=== PATIENT | female | born 1960 | race Caucasian/White ===

== ENCOUNTER 2018-04-18 12:39 | Emergency (ER) | payer MEDICARE ==
[~2018-04-18] VITALS: Ht 165.1 cm; Wt 110.0 kg
[~2018-04-18 12:39] MED LIST: BUDE10.2 PO; CLON0.5T11 PO; ERGO500017 PO; ESTR1TAB15 PO; GEMF600T4 PO; LISI-167 PO; OMEP-110 PO; OXCA300T PO; OXCA600T PO; RISP1TAB3 PO; SERT100T5 PO; SITA1TAB5 PO; TRAZ-136 PO; ZOLP10TA PO
[2018-04-18] MEDS ORDERED: VENL150C PO (13:10)
[2018-04-18] MEDS ORDERED: ESCI20TA10 PO (13:10)
[2018-04-18] MEDS ORDERED: SIMV20TA3 PO (13:10)
[2018-04-18] MEDS ORDERED: METF500T5 PO (13:10)
[2018-04-18] MEDS ORDERED: LISI-170 PO (13:10)
[2018-04-18] MEDS ORDERED: BREX1TAB PO (13:15)
[2018-04-18] MEDS ORDERED: DIPHENHYDRAMINE 50 MG/ML, 1ML ONE (13:28)
[2018-04-18] MEDS ORDERED: DIPHENHYDRAMINE 50 MG/ML, 1ML IVPush ONE (13:30)
[2018-04-18] MEDS ORDERED: SODIUM CHLORIDE FLUSH 10ML SYR IVF ONE (13:30)
[2018-04-18 13:42] LABS: BASOPHILS # (AUTO) 0.09 x10^3/uL (0-0.1); BASOPHILS % (AUTO) 1 % (0-1); EOSINOPHILS # (AUTO) 0.17 x10^3/uL (0-0.4); EOSINOPHILS % (AUTO) 2 % (1-7); LYMPHOCYTES # (AUTO) 1.74 x10^3/uL (1-3.4); LYMPHOCYTES % (AUTO) 23 % (22-44); MD NO; MEAN CORPUSCULAR HEMOGLOBIN 31.1 pg (27.0-34.8); MEAN CORPUSCULAR HGB CONC 33.9 g/dL (32.4-35.8); MEAN CORPUSCULAR VOLUME 91.7 fL (80-100); MEAN PLATELET VOLUME 9.1 fL (7.4-10.4); MONOCYTES # (AUTO) 0.49 x10^3/uL (0.2-0.8); MONOCYTES % (AUTO) 6 % (2-9); NEUTROPHILS # (AUTO) 5.25 x10^3/uL (1.8-6.8); NEUTROPHILS % (AUTO) 68 % (42-75); PLATELET COUNT 248 x10^3/uL (130-400); RED BLOOD COUNT 4.45 x10^6/uL (3.82-5.3); RED CELL DISTRIBUTION WIDTH 13.6 % (9.6-15.2)
[2018-04-18 13:46] LABS: ALBUMIN 3.9 g/dL (3.4-5.0); ANION GAP 12 mmol/L (5-15); CHLORIDE 91 mmol/L (98-107)
[2018-04-18 13:52] LABS: ALANINE AMINOTRANSFERASE 46 U/L (12-78); ALKALINE PHOSPHATASE 118 U/L (45-117); BILIRUBIN,TOTAL 0.4 mg/dL (0.2-1.0); CREATININE 0.79 mg/dL (0.55-1.02); TOTAL PROTEIN 7.7 g/dL (6.4-8.2); TROPONIN I < 0.015 ng/mL (0.000-0.045)
[2018-04-18] MEDS ORDERED: SODIUM CHLORIDE 0.9% 1,000ML IVBOLUS ONE (14:30)
[2018-04-18 15:02] VITALS: BP 146/75
== END 2018-04-18 15:13 | disposition home or self-care (01) ==
LOC: ED 15:10
DX: E87.1 Hypo-osmolality and hyponatremia (principal); G25.1 Drug-induced tremor; I10 Essential (primary) hypertension; E11.9 Type 2 diabetes mellitus without complications; E78.00 Pure hypercholesterolemia, unspecified; R19.7 Diarrhea, unspecified; R06.00 Dyspnea, unspecified
CPT/HCPCS: 36415; 71045; 80053; 84484; 85025; 93005; 96374; 99285; J1200

== ENCOUNTER → 2020-04-24 | Outpatient (CLI) | payer MEDICARE ==
[~2020-04-24] MED LIST changes: +BREX1TAB PO; +CLON-364 PO; -CLON0.5T11 PO; +ESCI20TA10 PO; -GEMF600T4 PO; +GEMF600T8 PO; +LISI-170 PO; +METF500T17 PO; -OXCA300T PO; +OXCA300T19 PO; -OXCA600T PO; +OXCA600T10 PO; +REGADENOSON 0.4 MG/5 ML SYRINGE ONE; +SERT100T32 PO; -SERT100T5 PO; +SIMV20TA19 PO; -TRAZ-136 PO; +TRAZ50TA66 PO; +VENL150C PO
== END | disposition home or self-care (01) ==
LOC: CFH 08:04
PROVIDERS: ATTEND Family Medicine
DX: R07.89 Other chest pain (principal); M35.3 Polymyalgia rheumatica; E11.29 Type 2 diabetes mellitus with other diabetic kidney complication
CPT/HCPCS: 78452; 93017; A9502; J2785

== ENCOUNTER → 2020-05-21 | Outpatient (CLI) | payer MEDICARE ==
[~2020-05-21] MED LIST changes: +EMPA10TA PO; +INSU100I13 SQ; +LEFL20TA PO; +LEVO15TA6 PO; +LISI30TA4 PO; +PROP40TA PO; +PROP80TA PO; +QUET200T4 PO; -REGADENOSON 0.4 MG/5 ML SYRINGE ONE; +TRAM50TA2 PO; +VITAMIN D-2 PO
== END | disposition home or self-care (01) ==
LOC: STAR 10:52
PROVIDERS: ATTEND Anesthesiology
DX: Z01.812 Encounter for preprocedural laboratory examination (principal); Z20.828 Contact with and (suspected) exposure to other viral communicable diseases
CPT/HCPCS: 36415; 87635

== ENCOUNTER 2020-07-27 12:35 | Emergency (ER) | payer MEDICARE ==
[~2020-07-27] VITALS: Ht 165.1 cm; Wt 96.8 kg
[~2020-07-27 12:35] MED LIST changes: -RISP1TAB3 PO; +RISP1TAB90 PO
[2020-07-27 12:39] VITALS: BP 120/71
[2020-07-27 13:19] LABS: BASOPHILS % (AUTO) 1 % (0-1); EOSINOPHILS % (AUTO) 4 % (1-7); LYMPHOCYTES % (AUTO) 27 % (22-44); MD NO; MEAN CORPUSCULAR HEMOGLOBIN 32.5 pg (27.0-34.8); MEAN CORPUSCULAR HGB CONC 32.7 g/dL (32.4-35.8); MEAN PLATELET VOLUME 10.8 fL (7.4-10.4); MONOCYTES % (AUTO) 7 % (2-9); NEUTROPHILS % (AUTO) 61 % (42-75); PLATELET COUNT 152 x10^3/uL (130-400); RED BLOOD COUNT 3.99 x10^6/uL (3.82-5.3); RED CELL DISTRIBUTION WIDTH 14.3 % (9.6-15.2)
[2020-07-27 13:24] LABS: ALBUMIN 3.9 g/dL (3.4-5.0); ANION GAP 14 mmol/L (5-15); CALCIUM 9.3 mg/dL (8.5-10.1); CHLORIDE 104 mmol/L (98-107); CREATININE 1.32 mg/dL (0.55-1.02)
[2020-07-27 13:28] LABS: TROPONIN I < 0.015 ng/mL (0.000-0.045)
--- NOTE | 2020-07-27 16:31 | NUR ---
PT TO RADIOLOGY VIA [facility].
[2020-07-27] MEDS ORDERED: SODIUM CHLORIDE FLUSH 10ML SYR IVF ONE (17:30)
[2020-07-27] MEDS ORDERED: SODIUM CHLORIDE 0.9% 1,000ML IVBOLUS ONE (17:30)
== END 2020-07-27 19:04 | disposition home or self-care (01) ==
LOC: ED 16:42
DX: E86.0 Dehydration (principal); R42 Dizziness and giddiness; R00.0 Tachycardia, unspecified; R07.9 Chest pain, unspecified; I10 Essential (primary) hypertension; E11.9 Type 2 diabetes mellitus without complications; E78.00 Pure hypercholesterolemia, unspecified; Z90.89 Acquired absence of other organs; Z90.49 Acquired absence of other specified parts of digestive tract; Z90.710 Acquired absence of both cervix and uterus
CPT/HCPCS: 36415; 70450; 71045; 80048; 82040; 82962; 84443; 84484; 85025; 93005; 99285